=== PATIENT | female | born 1945 ===

== ENCOUNTER 2024-06-29 22:42 | Inpatient (IN) ==
[2024-06-30] MEDS ORDERED: ONDANSETRON INJ 2 MG/ML 2 ML VIAL IV PRN (12:40)
[2024-06-30] MEDS ORDERED: ACETAMINOPHEN 325 MG TAB PO PRN (12:40)
[2024-06-30] MEDS ORDERED: MELATONIN 3 MG TAB PO PRN (12:40)
--- NOTE | 2024-06-30 12:55 | History & Physical Report ---
Date of Service June 30, 2024 Assessment & Plan (1) Acute postoperative pulmonary insufficiency: (2) Aspiration pneumonia: (3) Hiatal hernia: (4) GERD (gastroesophageal reflux disease): (5) Type 2 diabetes mellitus: (6) Essential hypertension: (7) Hypothyroidism: (8) H/O inguinal hernia repair: (9) History of carpal tunnel release: (10) History of esophagogastroduodenoscopy: (11) History of colonoscopy: (12) Iron deficiency anemia: Plan Pleasant 79yo female with T2DM, HTN, hyperlipidemia, GERD, hypothyroidism, OA of multiple joints, shingles with postherpetic neuralgia, and iron deficiency anemia with need for IV iron infusions presents as a transfer from [facility] ER due to aspiration event on 06/29/24 and at the request of the patient's family. On 06/29 the patient went for routine EGD/colonoscopy by Dr Serrano at [facility]. She had these endoscopies due to persistent iron deficiency anemia. EGD by her recollection showed a large hiatal hernia and colonoscopy was normal. No polyps seen. Unfortunately, after waking up in recovery, she was hypoxic and had cough/hoarse voice/mild chest tightness. #acute post-op pulmonary insufficiency - -already improved/resolving -post-op pulmonary insufficiency was 2nd to presumed aspiration event leading to pneumonia -by report had sats in the upper 80s when she was sent from the endoscopy recovery area to the ER at [place] -she required up to 4 L NC O2 per records while awaiting transfer to [facility] -upon presentation here sats are now >92% in room air #aspiration pneumonia - -BRUNO/LLE pneumonia clinically & radiographically -start Unasyn q6h, and at discharge transition to PO augmentin -plan total 7 days of Rx -suspect her large hiatal hernia & reflux disease led to her aspiration event -add albuterol 2 puffs QID -add robitussin 100mg QID #hiatal hernia / GERD - -only takes PPI prn at home -recommend she take her PPI every day -request the EGD & Colonoscopy reports from [facility] to give her more guidance -amazingly she has minimal GERD symptoms at home -patient does have occasional "gagging" with eating/drinking - will ask speech to see for swallow eval -gave handout on hiatal hernia; discussed things like upright for meals, not laying down following meals, etc. #h/o iron deficiency anemia - -this was the reason for her EGD/colonoscopy at [facility] yesterday -requested the reports ([facility] Nurse lizette working on this) -Hb here is 13.1 with MCV 84 -defer on checking Fe studies at this time -if scopes were negative for bleeding source suspect the GI/gen surg provider who did the scopes would refer for capsule endo? #T2DM - -check Hba1c -hold Actos 30mg daily -check BSGs ac/hs -DM diet -loose novolog SSI #uncontrolled HTN - -patient reports she has been on multiple BP meds over the last few months without consistent BP control -she checks BPs at home, and even with lisinopril she is often 140-160 systolic -would add amlodipine 2.5mg daily to her lisinopril 40mg daily #hypothyroidism - -TSH wnl -cont levothyroxine #hyperlipidemia - -cont statin #recent right ankle/foot arthritis - -history sounds like gout or pseudogout attack (came on suddenly, unable to weight bear, swollen/warm, rapid response to prednisone) -check uric acid level -ankle/foot nearly back to normal at this point #FEN - -start with clears -speech eval -if she tolerates clears and does well with speech then advance to regular diet #DVT proph - -if she stays beyond tomorrow would add heparin low-dose or similar daughter updated at bedside Admission and Anticipated Discharge Date Admission Date: June 30, 2024 History of Present Illness Chief Complaint: transfer from [facility] for suspected aspiration pneumonia Primary Care Provider: Elia Arita PA-C Pleasant 79yo female with T2DM, HTN, hyperlipidemia, GERD, hypothyroidism, OA of multiple joints, shingles with postherpetic neuralgia, and iron deficiency anemia with need for IV iron infusions presents as a transfer from [facility] ER due to aspiration event on 06/29/24 and at the request of the patient's family. On 06/29 the patient went for routine EGD/colonoscopy by Dr Serrano at [facility]. She had these endoscopies due to persistent iron deficiency anemia. EGD by her recollection showed a large hiatal hernia and colonoscopy was normal. No polyps seen. While in recovery she had upper left chest tightness, was noted to be hypoxic, was coughing with sputum production, and her voice was "tight." It was suspected she had had an aspiration event during her endoscopies and therefore was sent to the [facility] ER. While there she was given duonebs x 2, a dose of decadron IV 10mg, and by report doxycycline & azithromycin. CTA chest & cxr along with labs were obtained. Patient was not fully certain but said "they told me something was wrong in the left lung." Family requested transfer to [facility] and arrived this am for ongoing care. Per the limited records we received from [facility] her initial o2 sats in the ER there were 89% in room air. She had supplemental O2 applied with improvement. Her chest tightness resolved yesterday sometime in the [place] ER, but returned this morning when she woke up. The chest tightness is mainly the left upper chest but it is not pleuritic. She reports minimal cough despite her chest symptoms. During my admission assessment she was resting comfortably in bed. O2 sats were 92-93% in room air. HOME MEDICATION LIST: Atorvastatin 40mg HS; Ferrous sulfate 325mg daily; levothyroxine 50mcg qam; lisinopril 40mg qam; omeprazole 20mg daily PRN; actos 30mg daily Allergies Allergy/AdvReac Type Severity Reaction Status Date / Time metformin Allergy Mild Diarrhea Verified 06/30/24 13:15 Past Med/Surg History Problem List Medical History (Updated 06/30/24 @ 12:55 by Julio Mcgrath MD) Iron deficiency anemia Hypothyroidism Essential hypertension Type 2 diabetes mellitus GERD (gastroesophageal reflux disease) Hiatal hernia Aspiration pneumonia Acute postoperative pulmonary insufficiency Surgical History (Updated 06/30/24 @ 12:55 by Julio Mcgrath MD) History of colonoscopy History of esophagogastroduodenoscopy History of carpal tunnel release right - 03/2016 H/O inguinal hernia repair left - 05/2015 Family History (Updated 06/30/24 @ 22:16 by Julio Mcgrath MD) Mother , age 75 Diabetes Heart disease Hypertension Myocardial infarction Father , age 71 Heart disease Lung disease Brother , was ESRD - age 80 Kidney disease Social History (Updated 06/30/24 @ 22:44 by Julio Mcgrath MD) Smoking Status: Never smoker Hx Alcohol Use: Yes Alcohol type: hard liquor Alcohol Intake Frequency: Monthly or Less Hx Substance Use: No Preferred Language: German Communication Ability: Effective Ergonomist Required: No Beliefs That Will Affect Care: None marital status: Current Living Situation: Alone current occupational status: retired current occupation: 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[employer]; secretarial work; taxation agent; still working part-time How many Children do You have: 3 Feels Safe at Home: Yes Assistive Devices: None Review of Systems Review of Systems: gen - no fevers or chills; normal appetite; no recent weight loss eyes - no changes in vision HENT - voice is hoarse; no ear pain neck - no pain CV - no substernal chest pain; left-sided chest tightness pulm - minimal cough; no dyspnea; some sputum; had wheezing yesterday GI - occasional difficulty swallowing; occasional "gagging" on food; only takes PPI prn - no LUTs musculo - chronic knee pain; recent right foot/ankle swelling & pain - was severe, could not walk on it, went to urgent care, got steroids; within 24 hours significant improvement skin - no rash neuro - no headache Physical Exam Physical Exam: gen - looks very good, NAD eyes - PERRL HENT - nose clear, mouth with MMM, mild erythema posterior throat neck - supple, no JVD, no lymph nodes heart - RRR, s1 s2, no murmur lungs - left anterior chest with crackles; minimal crackles L mid-lung posteriorly; right lung clear; no increased work of breathing; no wheeze abd - soft NT ND BS+ ext - no edema, pulses 2+ b/l musculo - right ankle with minimal swelling but no pain/tenderness skin - no rash neuro - strength 5/5 x 4 exts; DTRs 2+ b/l psych - a/o x 3 Results & Data Results & Data Vital Signs (Past 12 Hours) Vital Signs Temp Pulse Resp BP Pulse Ox O2 Del Method O2 Flow Rate 06/30/24 11:21 195/88 H 06/30/24 10:48 97 Room Air 2 06/30/24 10:47 64 06/30/24 10:13 36.6 C 18 171/109 H 98 Nasal Cannula 3 06/30/24 10:05 Nasal Cannula 3 Laboratory Results Laboratory Results - last 24 hr 06/30/24 06/30/24 06/30/24 11:18 12:57 16:16 WBC 11.46 H RBC 4.80 Hgb 13.1 Hct 40.3 MCV 84.0 MCH 27.3 MCHC 32.5 RDW Std Deviation 64.2 H RDW Coeff of Ori 20.5 H Plt Count 183 MPV 10.5 Immature Gran % (Auto) 0.6 Neut % (Auto) 83.5 Lymph % (Auto) 10.2 [place] % (Auto) 5.6 Eos % (Auto) 0.0 Baso % (Auto) 0.1 Neut # (Auto) 9.57 H Lymph # (Auto) 1.17 L [place] # (Auto) 0.64 H Eos # (Auto) 0.00 Baso # (Auto) 0.01 Immature Gran # (Auto) 0.07 Polychromasia 1+ Anisocytosis Present Sodium 141 Potassium 3.4 L Chloride 105 Carbon Dioxide 28 Anion Gap 8 BUN 13 Creatinine 0.48 L Est Cr Clr Drug Dosing Not Reportable eGFR 96.89 BUN/Creatinine Ratio 27.1 H Glucose 124 H POC Glucose 135 H 165 H Estimat Average Glucose 140 Hemoglobin A1c 6.5 H Uric Acid 3.9 Calcium 9.1 Magnesium 1.7 Troponin I High Sens 5.0 TSH 0.412 Diagnostic Findings CTA chest - had CD with images downloaded into PACs - spoke with radiology here - large hiatal hernia, BRUNO and LLL infiltrates Code Status & VTE Plan Code Status full code PG Care Time/CCT Total # of Minutes Spent Total Time Spent with Patient: Total time spent is greater than 50% in coordination of care (as documented) at patient's floor/unit and/or counseling patient: Coding Level of Care Code 54840 INT INP/OBS CARE 3/75MIN Diagnoses Acute postoperative pulmonary insufficiency J95.2 Aspiration pneumonia J69.0 Hiatal hernia K44.9 GERD (gastroesophageal reflux disease) K21.9 Type 2 diabetes mellitus E11.9 Essential hypertension I10 Hypothyroidism E03.9 H/O inguinal hernia repair Z98.890; Z87.19 History of carpal tunnel release Z98.890 History of esophagogastroduodenoscopy Z98.890 History of colonoscopy Z98.890 Iron deficiency anemia D50.9
[2024-06-30 13:38] LABS: Hematocrit (blood only) 40.3 % (37.0-47.0); Hemoglobin 13.1 g/dl (12.0-16.0); Mean Corpuscular Hemoglobin 27.3 pg (25.0-34.0); Mean Corpuscular Hgb Conc 32.5 g/dL (32.0-36.0); Mean Platelet Volume 10.5 fL (9.4-12.4); Platelet Count 183 K/uL (130-400); RDW Coefficient of Variation 20.5 % (11.5-14.5); RDW Standard Deviation 64.2 fL (36.4-46.3); White Blood Count 11.46 K/ul (4.8-10.8)
[2024-06-30] MEDS: Patient's ALLERGY Info needs ENTERED STA (13:53)
[2024-06-30] MEDS: AMPICILLIN/SULBACTAM SOD 3,000 MG/100 ML BAG IV SCH (13:53)
[2024-06-30] MEDS: INSULIN ASPART PER UNIT CHARGE SC SCH (13:53)
[2024-06-30 13:54] LABS: Anion Gap 8 (3-11); Anisocytosis Present; BUN Creatinine Ratio 27.1 (10-20); Basophils # (auto) 0.01 K/uL (0.00-0.20); Basophils % (auto) 0.1 %; Blood Urea Nitrogen 13 mg/dl (6-23); Calcium 9.1 mg/dl (8.6-10.3); Carbon Dioxide 28 mmol/L (21-32); Chloride 105 mmol/L (98-107); Glucose 124 mg/dl (70-99(Fasting)); Immature Granulocytes # (auto) 0.07 K/uL (0.01-0.20); Immature Granulocytes % (auto) 0.6 %; Lymphocytes # (auto) 1.17 K/uL (1.20-3.40); Lymphocytes % (auto) 10.2 %; Magnesium 1.7 mg/dl (1.7-2.4); Monocytes # (auto) 0.64 K/uL (0.11-0.59); Monocytes % (auto) 5.6 %; Neutrophils # (auto) 9.57 K/uL (1.40-6.50); Neutrophils % (auto) 83.5 %; Polychromasia 1+; Potassium 3.4 mmol/L (3.5-5.1); Sodium 141 mmol/L (136-145); Uric Acid 3.9 mg/dl (2.6-7.2)
[2024-06-30] MEDS: PANTOprazole 40 MG TAB PO STA (13:57)
[2024-06-30] MEDS: guaiFENesin SUGAR FREE 100 MG/5 ML UDC PO SCH (13:57)
[2024-06-30] MEDS: FERROUS SULFATE 325 MG TAB PO SCH (13:57)
[2024-06-30 14:05] LABS: Thyroid Stimulating Hormone 0.412 uIu/ml (0.300-4.500)
[2024-06-30] MEDS: amLODIPine BESYLATE 5 MG TAB PO ONE (15:06)
[2024-06-30] MEDS: LEVOTHYROXINE SODIUM 50 MCG TABLET PO SCH (15:22)
[2024-06-30] MEDS: POTASSIUM CHLORIDE 10 MEQ TABCR PO STA (15:32)
[2024-06-30] MEDS: ALBUTEROL HFA 8 GM INHALER INH SCH (15:47)
[2024-06-30 20:14] LABS: Estimated Average Glucose 140 mg/dl; Hemoglobin A1C 6.5 % (4.5-5.6)
[2024-06-30] MEDS: ATORVASTATIN 40 MG TAB PO SCH (20:30)
[2024-07-01] MEDS: LEVOTHYROXINE SODIUM 50 MCG TABLET PO SCH (06:05)
[2024-07-01 06:23] LABS: Anion Gap 4 (3-11); BUN Creatinine Ratio 23.5 (10-20); Blood Urea Nitrogen 12 mg/dl (6-23); Calcium 8.3 mg/dl (8.6-10.3); Carbon Dioxide 31 mmol/L (21-32); Chloride 107 mmol/L (98-107); Glucose 129 mg/dl (70-99(Fasting)); Potassium 3.3 mmol/L (3.5-5.1); Sodium 142 mmol/L (136-145)
[2024-07-01] MEDS ORDERED: methylPREDNISolone 10 mg/mL (For Ped Dose < 7mg) IV SCH (08:00)
[2024-07-01] MEDS ORDERED: amLODIPine BESYLATE 5 MG TAB PO SCH (09:00)
--- NOTE | 2024-07-01 09:33 | XRay Report ---
XR chest 2V PA/lateral CLINICAL HISTORY: aspiration pneumonitis, hypoxia COMPARISON STUDY: Chest radiograph and chest CT June 29, 2024. FINDINGS: There is no pneumothorax. There are trace bilateral pleural effusions. A large hiatal herni a is again noted. The heart is mildly enlarged. There is no evidence for pulmonary edema. Patchy left lung opacities have slightly improved. Minimal right basilar opacity favors atelectasis. IMPRESSION: 1. Patchy left lung opacities which have improved since prior exam. These favor pneumonia or aspirati on pneumonitis. 2. Trace bilateral pleural effusions. 3. Redemonstration of a large hiatal hernia. ACT 112: Negative or not required by law. Electronically signed by: Marcel Reeder M.D. 07/01/2024 9:31 AM
[2024-07-01] MEDS: lisinopril 40 MG TAB PO SCH (09:50)
[2024-07-01] MEDS: amLODIPine BESYLATE 5 MG TAB PO SCH (09:50)
[2024-07-01] MEDS: PANTOprazole 40 MG TAB PO SCH (09:50)
[2024-07-01] MEDS: methylPREDNISolone 40 MG in SYRINGE 0 ML IV SCH (09:51)
[2024-07-01] MEDS: POTASSIUM CHLORIDE CRTAB 20 MEQ TABCR PO SCH (09:53)
[2024-07-01] MEDS ORDERED: ALBUTEROL HFA 8 GM INHALER INH PRN (10:21)
--- NOTE | 2024-07-01 12:52 | Hospitalist Progress Note ---
Date of Service July 01, 2024 Assessment & Plan (1) Acute postoperative pulmonary insufficiency: Plan: Probable acute pneumonitis from aspiration of gastric contents related to the endoscopy procedure yesterday, June 30. She is now on parenteral steroid therapy. Chest x-ray done today, July 01, looks better. (2) Aspiration pneumonia: Plan: Actually, I believe her current situation represents aspiration pneumonitis without actual infection. She is now on parenteral steroid therapy (3) GERD (gastroesophageal reflux disease): Plan: Stable. Continue PPI therapy (4) Type 2 diabetes mellitus: Plan: ADA diet. Sliding scale coverage. (5) Essential hypertension: Plan: Improved after addition of amlodipine. Amlodipine dosage was uptitrated today, July 01. Continue lisinopril (6) Hypothyroidism: Plan: Stable. Continue current medical management Plan Hopeful discharge to home tomorrow, July 02 Admission and Anticipated Discharge Date Admission Date: June 30, 2024 Subjective Alert and oriented. No distress. More than likely she has aspiration pneumonitis related to her endoscopy procedures done at the [facility] yesterday. She continues to remain on 2 L of oxygen. Chest x-ray done today, July 01, looks better. She is now on parenteral steroid therapy. Oral potassium replacement has been ordered. Hopefully she can go home tomorrow, july first Review of Systems 2 Review of Systems: Constitutionalno fever or chills ENTno blurred vision, no double vision, no epistaxis, no sore throat Respiratoryno cough, no wheezing. No shortness of breath at rest. Dyspnea on exertion has lessened Cardiacno palpitations, no chest pain, no syncope [place] nausea, vomiting, diarrhea, melena, hematochezia GUno urinary retention, no urinary incontinence, no dysuria, no hematuria Musculoskeletalno joint pain, no muscle tenderness Skinno bruising, no rashes, no pruritus Neurono isolated weakness, no paresthesia, no weakness Psychno depression, no anxiety Physical Exam 2 Physical Exam: General-alert and oriented x3, no fever, no chills HEENT-head atraumatic and normocephalic, pupils equal and reactive to light, extraocular muscles intact Neck-no lymphadenopathy or thyromegaly, trachea midline Chest-clear to auscultation. No rales, wheezing or rhonchi Cardiac-regular rate and rhythm, normal S1 and S2 Abdomen-normal bowel sounds, no hepatosplenomegaly Extremities-no cyanosis, clubbing, or edema Neuro-cranial nerves II through XII intact, motor and sensory function within normal limits, strength symmetrical, no focal deficits Psych-normal affect, normal mood Results & Data Results & Data Vital Signs (Past 12 Hours) Vital Signs Temp Pulse Pulse Pulse Resp BP Pulse Ox 07/01/24 12:02 36.7 C 71 20 163/89 H 93 07/01/24 07:51 59 L 07/01/24 07:50 36.7 C 68 16 146/86 H 92 07/01/24 07:47 07/01/24 07:14 66 16 94 07/01/24 03:00 36.5 C 54 L 18 143/75 H 94 O2 Del Method O2 Flow Rate 07/01/24 12:02 Nasal Cannula 07/01/24 07:51 07/01/24 07:50 Nasal Cannula 1 07/01/24 07:47 Nasal Cannula 1 07/01/24 07:14 Nasal Cannula 2 07/01/24 03:00 Nasal Cannula Laboratory Results 06/30/24 12:57 07/01/24 05:40 PG Care Time/CCT Total # of Minutes Spent Total Time Spent with Patient: Total time spent is greater than 50% in coordination of care (as documented) at patient's floor/unit and/or counseling patient: Coding Level of Care Code 75186 SUB INP/OBS CARE 3/50MIN Diagnoses Acute postoperative pulmonary insufficiency J95.2 Aspiration pneumonia J69.0 GERD (gastroesophageal reflux disease) K21.9 Type 2 diabetes mellitus E11.9 Essential hypertension I10 Hypothyroidism E03.9
[2024-07-02 03:21] VITALS: RESP 18
[2024-07-02 06:51] LABS: Anion Gap 2 (3-11); BUN Creatinine Ratio 24.5 (10-20); Blood Urea Nitrogen 12 mg/dl (6-23); Carbon Dioxide 31 mmol/L (21-32); Chloride 106 mmol/L (98-107); Glucose 208 mg/dl (70-99(Fasting)); Potassium 4.1 mmol/L (3.5-5.1); Sodium 139 mmol/L (136-145)
[2024-07-02 06:55] LABS: Hematocrit (blood only) 41.8 % (37.0-47.0); Hemoglobin 13.4 g/dl (12.0-16.0); Mean Corpuscular Hemoglobin 27.2 pg (25.0-34.0); Mean Corpuscular Hgb Conc 32.1 g/dL (32.0-36.0); Mean Platelet Volume 10.3 fL (9.4-12.4); Platelet Count 197 K/uL (130-400); RDW Coefficient of Variation 20.5 % (11.5-14.5); RDW Standard Deviation 64.6 fL (36.4-46.3); Red Blood Count 4.92 M/uL (4.20-5.40); White Blood Count 10.52 K/ul (4.8-10.8)
[2024-07-02 06:56] LABS: Anisocytosis Present; Basophils # (auto) 0.01 K/uL (0.00-0.20); Basophils % (auto) 0.1 %; Immature Granulocytes # (auto) 0.08 K/uL (0.01-0.20); Immature Granulocytes % (auto) 0.8 %; Lymphocytes # (auto) 0.76 K/uL (1.20-3.40); Lymphocytes % (auto) 7.2 %; Monocytes # (auto) 0.12 K/uL (0.11-0.59); Monocytes % (auto) 1.1 %; Neutrophils # (auto) 9.55 K/uL (1.40-6.50); Neutrophils % (auto) 90.8 %
[2024-07-02 07:10] VITALS: TEMP 97.9
--- NOTE | 2024-07-02 09:36 | Electrocardiogram Report ---
Test Reason : Blood Pressure : */* mmHG Vent. Rate : 61 BPM Atrial Rate : 61 BPM P-R Int : 172 ms QRS Dur : 82 ms QT Int : 424 ms P-R-T Axes : 58 12 17 degrees QTcB Int : 426 ms Normal sinus rhythm Nonspecific T wave abnormality Abnormal ECG No previous ECGs available Confirmed by Ryland Pitt ([id number]) on 07/02/2024 9:36:34 AM Referred By: Jyotsna Martínez Confirmed By: Ryland Pitt
[2024-07-02 10:58] VITALS: BP 162/89; O2SAT 92
[2024-07-02] MEDS: amLODIPine BESYLATE 5 MG TAB PO ONE (11:07)
--- NOTE | 2024-07-02 11:28 | Discharge Summary ---
Discharge Summary Date of Service July 02, 2024 Principal Dx & Hospital Course #1 = Principal Diagnosis (1) Acute postoperative pulmonary insufficiency: Probable acute pneumonitis from aspiration of gastric contents related to the endoscopy procedure done on June 30. Much improved with parenteral steroid therapy. She will be discharged on a tapering dose of oral prednisone. (2) Aspiration pneumonia: Actually, I believe her current situation represents aspiration pneumonitis without actual infection. She was treated while hospitalized with parenteral steroid therapy and will continue a prednisone tapering dose at discharge. No further antibiotic treatment needed (3) GERD (gastroesophageal reflux disease): Stable. Continue PPI therapy (4) Type 2 diabetes mellitus: ADA diet. Sliding scale coverage. (5) Essential hypertension: Improved after addition of amlodipine. Amlodipine dosage was uptitrated again today, July 02. Continue lisinopril (6) Hypothyroidism: Stable. Continue current medical management Plan Home today, July 02, on a tapering dose of oral prednisone and amlodipine 10 mg daily in addition to her other usual medications. Admission HPI Per Admitting Provider Pleasant 79yo female with T2DM, HTN, hyperlipidemia, GERD, hypothyroidism, OA of multiple joints, shingles with postherpetic neuralgia, and iron deficiency anemia with need for IV iron infusions presents as a transfer from [facility] ER due to aspiration event on 06/29/24 and at the request of the patient's family. On 06/29 the patient went for routine EGD/colonoscopy by Dr Serrano at [facility]. She had these endoscopies due to persistent iron deficiency anemia. EGD by her recollection showed a large hiatal hernia and colonoscopy was normal. No polyps seen. While in recovery she had upper left chest tightness, was noted to be hypoxic, was coughing with sputum production, and her voice was "tight." It was suspected she had had an aspiration event during her endoscopies and therefore was sent to the [facility] ER. While there she was given duonebs x 2, a dose of decadron IV 10mg, and by report doxycycline & azithromycin. CTA chest & cxr along with labs were obtained. Patient was not fully certain but said "they told me something was wrong in the left lung." Family requested transfer to [facility] and arrived this am for ongoing care. Per the limited records we received from [facility] her initial o2 sats in the ER there were 89% in room air. She had supplemental O2 applied with improvement. Her chest tightness resolved yesterday sometime in the [place] ER, but returned this morning when she woke up. The chest tightness is mainly the left upper chest but it is not pleuritic. She reports minimal cough despite her chest symptoms. During my admission assessment she was resting comfortably in bed. O2 sats were 92-93% in room air. HOME MEDICATION LIST: Atorvastatin 40mg HS; Ferrous sulfate 325mg daily; levothyroxine 50mcg qam; lisinopril 40mg qam; omeprazole 20mg daily PRN; actos 30mg daily Discharge Exam General-alert and oriented x3, no fever, no chills HEENT-head atraumatic and normocephalic, pupils equal and reactive to light, extraocular muscles intact Neck-no lymphadenopathy or thyromegaly, trachea midline Chest-clear to auscultation. No rales, wheezing or rhonchi Cardiac-regular rate and rhythm, normal S1 and S2 Abdomen-normal bowel sounds, no hepatosplenomegaly Extremities-no cyanosis, clubbing, or edema Neuro-cranial nerves II through XII intact, motor and sensory function within normal limits, strength symmetrical, no focal deficits Psych-normal affect, normal mood Discharge Plan Discharge Items Patient Disposition: Home - Self-Care Reason For Visit: ACUTE HYPOXIC RESPIRATORY FAILURE Discharge Diagnosis: Suspected aspiration of gastric contents with pneumonitis, transient acute hypoxic respiratory failure, Uncontrolled essential hypertension Activity: Resume your previous activity Non-emergency contact: Primary Care Provider Call non-emergency contact if: you have any medication questions and your symptoms worsen Follow-up/Referrals: Elia Arita PA-C [Primary Care Provider] - Diet: Carb Consistent or DM2 Addtl Attending Provider Instructions: Take prednisone in a tapering dose fashion as directed. Take amlodipine 10 mg once daily for additional blood pressure control. All other medications remain the same. See primary care provider soon as possible for follow-up Pending Studies at Discharge: No Stand-Alone Forms: [facility] Sm[facility] Cessation Medications and DC Order Prescriptions: New prednisone 10 mg Tablet See Rx Instructions .ROUTE .COMPLEX Qty: 12 0RF Rx Instructions: 10 mg orally 3 times a day for 2 days, then 10 mg twice a day for 2 days, then 10 mg once a day for 2 days, then stop amlodipine 10 mg tablet 10 mg PO DAILY Qty: 30 0RF Continued omeprazole 20 mg Capsule,Delayed Release(Dr/Ec) 20 mg PO DAILY PRN (Reason: Acid Reflux) atorvastatin 40 mg Tablet 40 mg PO HS prednisone 10 mg Tablet 10 mg PO DIRECTED Rx Instructions: see taper instructions meloxicam 15 mg Tablet 15 mg PO BID PRN (Reason: Pain, Severe) levothyroxine 50 mcg Tablet 50 mcg PO DAILY ferrous sulfate 325 mg (65 mg iron) Tablet 325 mg PO Q OTHER DAY pioglitazone 30 mg Tablet 30 mg PO DAILY Rx Instructions: before breakfast lisinopril 40 mg Tablet 40 mg PO DAILY acetaminophen [Tylenol Extra Strength] 500 mg Capsule 500 mg PO Q6H PRN (Reason: Pain, Moderate) Discharge Orders: Discharge Order (Routine); Ordered 07/02/24 Ordered By: Adrián Marie/Other Patient Handouts: Managing Type 2 Diabetes, What Is a Hiatal Hernia? Admission Data Admit Date/Time: 06/30/24 12:41 Attending Provider: Adrián Hdez Admit Provider: Jyotsna Martínez Primary Care Provider: Elia Arita Hospital Stay Data Pending Results Patient Have Any Pending Studies at Discharge: No Discharge Instructions Given to Patient (Per Discharging Provider) Take prednisone in a tapering dose fashion as directed. Take amlodipine 10 mg once daily for additional blood pressure control. All other medications remain the same. See primary care provider soon as possible for follow-up Total Time Total Time Spent Total Time Spent (In Minutes): 45 minutes Coding Level of Care Code 56407 INP/OBS DISCH >30 MIN Diagnoses Acute postoperative pulmonary insufficiency J95.2 Aspiration pneumonia J69.0 GERD (gastroesophageal reflux disease) K21.9 Type 2 diabetes mellitus E11.9 Essential hypertension I10 Hypothyroidism E03.9
[2024-07-02 12:06] VITALS: PULSE 66
[2024-07-02] MEDS: predniSONE 10 MG TABLET PO SCH (12:34)
[2024-07-03] MEDS ORDERED: amLODIPine BESYLATE 5 MG TAB PO SCH (09:00)
== END 2024-07-02 13:08 | disposition home or self-care (01) | DRG 205 ==
LOC: SUATTDRO 06-30 09:51 → INTOOBSV 06-30 09:51 → 2E 06-30 09:51 → OBSVTOIN 06-30 12:41